=== PATIENT | female | born 1930 | race Caucasian/White ===

== ENCOUNTER 2016-08-30 12:42 | Inpatient (IN) | payer OTHER ==
[2016-08-30] MEDS ORDERED: ASPIRIN PO STA (12:51)
--- NOTE | 2016-08-30 12:53 | PROVIDER DOCUMENTATION ---
HPI-Chest Pain - General Chief Complaint: Chest Pain Stated Complaint: chest pain Time Seen by Provider: 08/30/16 12:45 Allergies/Adverse Reactions: Patient Allergies Allergy/AdvReac Type Severity Reaction Status Date / Time gabapentin [From Neurontin] Allergy NAUSEA Verified 08/30/16 13:55 nitrofurantoin Allergy Unknown Verified 08/30/16 13:55 [From Macrobid] nitrofurantoin Allergy Unknown Verified 08/30/16 13:55 macrocrystalline * [From Macrobid] Penicillins Allergy Unknown Verified 08/30/16 13:55 Home Medications: Home Medication List Medication Instructions Recorded Confirmed Last Taken Type Acetaminophen [Mapap] 325 mg PO PRN PRN 08/30/16 08/30/16 Unknown History Amlodipine [Norvasc] 5 mg PO DAILY 08/30/16 08/30/16 Unknown History Bifidobacterium Infantis [Align] 4 mg PO DAILY 08/30/16 08/30/16 Unknown History Citalopram [Celexa] 20 mg PO DAILY 08/30/16 08/30/16 Unknown History Clobetasol Propionate 15 gm TP DAILY 08/30/16 08/30/16 Unknown History Loperamide [Imodium] 2 mg PO PRN PRN 08/30/16 08/30/16 Unknown History Meclizine HCl [Motion Sickness 25 mg PO DAILY 08/30/16 08/30/16 Unknown History Relief] Promethazine [Phenergan] 12.5 mg MI Q6H PRN PRN 08/30/16 08/30/16 Unknown History Sodium Chloride 1 gm PO DAILY 08/30/16 08/30/16 Unknown History - History of Present Illness-CP Location: reports: substernal, central, epigastric, shoulder Chest Pain Radiation: reports: back Quality of Pain: reports: fullness, pressure Severity in ED: mild Onset/Duration: 1-3 hours ago Timing: improving Context/Activities at Onset: reports: light activity Modifying Factors: improves with: nothing, breathing, rest Associated Symptoms: reports: denies symptoms Nitro Today/Relief: no nitro taken today Aspirin Treatment Today: no aspirin today Similar Symptoms Previously?: Yes Recently Seen Here or By Another Healthcare Provider: No Review of Systems - Adult - REVIEW OF SYSTEMS - ADULT Constitutional: reports: no symptoms reported Eyes: reports: no symptoms reported Ears, Nose, Mouth & Throat: reports: no symptoms reported Cardiovascular: reports: no symptoms reported Respiratory: reports: no symptoms reported Gastrointestinal: reports: no symptoms reported Genitourinary: reports: no symptoms reported Musculoskeletal: reports: no symptoms reported Integumentary: reports: no symptoms reported Neurological: reports: no symptoms reported Psychiatric: reports: no symptoms reported Endocrine: reports: no symptoms reported Hematologic/Lymphatic: reports: no symptoms reported Allergic/Immunologic: reports: no symptoms reported All Other Systems: Reviewed and Negative Past History - Adult - PAST MEDICAL HISTORY-ADULT Review of Records: reports: Old Records Reviewed, Nursing Assessment Review, Medications Reviewed, Social history reviewed & non-contributory. Major Childhood Illnesses: reports: denies history Cardiovascular: reports: HTN, murmur Respiratory: reports: denies history Gastrointestinal: reports: denies history Obstetrical/Gynecological: reports: denies history Genitourinary: reports: denies history Musculoskeletal: reports: denies history Neurological: reports: other (neuropathy) Psychiatric: reports: anxiety Endocrine/Immune: reports: denies history Other Conditions: reports: denies history - PRIOR SURGERIES/PROCEDURES Surgical/Procedure History: reports: appendectomy, cholecystectomy - IMMUNIZATION STATUS Childhood Immunizations: See Nurse Assessment Flu Vaccine: See Nurse Assessment - FAMILY HISTORY Family History: reviewed, not pertinent Physical Exam-General - PHYSICAL EXAM-ADULT Initial Vital Signs Reviewed: Yes - CONSTITUTIONAL General Appearance: appears well, alert, no apparent distress - EYES Eyes: PERRL/EOMI, pink conjunctivae - HEAD, EARS, NOSE, MOUTH & THROAT HENMT: normocephalic/atraumatic, moist mucous membranes - NECK Neck: non-tender, full range of motion - RESPIRATORY Respiratory: chest non-tender, lungs clear, normal breath sounds - CARDIOVASCULAR Cardiovascular: normal peripheral pulses, no edema, no JVD, no murmur, irregularly irregular - GASTROINTESTINAL (ABDOMEN) Abdominal Exam: normal bowel sounds, non tender, soft, no organomegaly - LYMPHATIC Lymphatic: no adenopathy - MUSCULOSKELETAL Back Exam: normal inspection, no CVA tenderness Extremity: normal range of motion, non-tender - SKIN Integumentary: normal color, normal turgor - NEUROLOGIC 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, grossly normal, no motor/sensory deficits - PSYCHIATRIC Psych/Mental Status: normal mood/affect Progress - PLAN OF CARE/RESULTS Progress/Plan/Lab Results: Laboratory Tests 08/30/16 08/30/16 08/30/16 13:01 13:01 13:01 WBC 7.08 RBC 4.68 Hgb 14.1 Hct 40.4 MCV 86.3 MCH 30.1 MCHC 34.9 RDW Std Deviation 13.1 Plt Count 271 MPV 9.0 Immature Gran % (Auto) 0.3 Neut % (Auto) 69.7 Lymph % (Auto) 18.5 L [place] % (Auto) 10.0 H Eos % (Auto) 1.1 Baso % (Auto) 0.4 Immature Gran # (Auto) 0.02 Neut # (Auto) 4.93 Lymph # (Auto) 1.31 [place] # (Auto) 0.71 H Eos # (Auto) 0.08 Baso # (Auto) 0.03 PT INR PTT (Actin FS) D-Dimer 0.45 Sodium 136 Potassium 2.7 L Chloride 94 L Carbon Dioxide 26 Anion Gap 16 BUN 13 Creatinine 0.7 Estimated GFR/1.73 m2 > 60 BUN/Creatinine Ratio 19 Glucose 101 Calculated Osmolality 272 Calcium 9.4 Magnesium 1.9 Total Bilirubin 0.58 AST 17 ALT 9 L Alkaline Phosphatase 84 Creatine Kinase 37 Troponin T Zls-M-Uhdfmhgxchf Pept Total Protein 8.9 H Albumin 4.0 Globulin 4.9 Albumin/Globulin Ratio 0.8 Urine Source Urine Color Urine Clarity Urine Turbidity Urine pH Ur Specific [place] Urine Protein Ur Glucose (Stick) Urine Ketones Ur Ketones (Stick) Urine Blood Urine Nitrite Urine Bilirubin Urine Urobilinogen Urobilinogen Dipstick Urine Leukocytes Urine WBC (Auto) Urine RBC (Auto) U Epithel Cells (Auto) Urine Bacteria (Auto) Urine Microscopic RBC Urine WBC Urine Microscopic WBC Ur Epithelial Cells Urine Crystals Small Round Cells Urine Bacteria Urine Casts Urine Yeast Urine Glucose 08/30/16 08/30/16 08/30/16 13:01 13:01 13:01 WBC RBC Hgb Hct MCV MCH MCHC RDW Std Deviation Plt Count MPV Immature Gran % (Auto) Neut % (Auto) Lymph % (Auto) [place] % (Auto) Eos % (Auto) Baso % (Auto) Immature Gran # (Auto) Neut # (Auto) Lymph # (Auto) [place] # (Auto) Eos # (Auto) Baso # (Auto) PT 10.9 INR 1.03 PTT (Actin FS) 31.3 D-Dimer Sodium Potassium Chloride Carbon Dioxide Anion Gap BUN Creatinine Estimated GFR/1.73 m2 BUN/Creatinine Ratio Glucose Calculated Osmolality Calcium Magnesium Total Bilirubin AST ALT Alkaline Phosphatase Creatine Kinase Troponin T < 0.010 Ogw-D-Stvpoiestkd Pept 152 Total Protein Albumin Globulin Albumin/Globulin Ratio Urine Source Urine Color Urine Clarity Urine Turbidity Urine pH Ur Specific [place] Urine Protein Ur Glucose (Stick) Urine Ketones Ur Ketones (Stick) Urine Blood Urine Nitrite Urine Bilirubin Urine Urobilinogen Urobilinogen Dipstick Urine Leukocytes Urine WBC (Auto) Urine RBC (Auto) U Epithel Cells (Auto) Urine Bacteria (Auto) Urine Microscopic RBC Urine WBC Urine Microscopic WBC Ur Epithelial Cells Urine Crystals Small Round Cells Urine Bacteria Urine Casts Urine Yeast Urine Glucose 08/30/16 14:02 WBC RBC Hgb Hct MCV MCH MCHC RDW Std Deviation Plt Count MPV Immature Gran % (Auto) Neut % (Auto) Lymph % (Auto) [place] % (Auto) Eos % (Auto) Baso % (Auto) Immature Gran # (Auto) Neut # (Auto) Lymph # (Auto) [place] # (Auto) Eos # (Auto) Baso # (Auto) PT INR PTT (Actin FS) D-Dimer Sodium Potassium Chloride Carbon Dioxide Anion Gap BUN Creatinine Estimated GFR/1.73 m2 BUN/Creatinine Ratio Glucose Calculated Osmolality Calcium Magnesium Total Bilirubin AST ALT Alkaline Phosphatase Creatine Kinase Troponin T Pzs-J-Tvtnxcfzhkv Pept Total Protein Albumin Globulin Albumin/Globulin Ratio Urine Source CLEAN CATCH Urine Color YELLOW Urine Clarity Cancelled Urine Turbidity HAZY Urine pH 6.5 Ur Specific [place] 1.015 Urine Protein TRACE A Ur Glucose (Stick) NEGATIVE Urine Ketones Cancelled Ur Ketones (Stick) 10 A Urine Blood NEGATIVE Urine Nitrite POSITIVE A Urine Bilirubin NEGATIVE Urine Urobilinogen Cancelled Urobilinogen Dipstick NORMAL Urine Leukocytes MODERATE A Urine WBC (Auto) 10-20 A Urine RBC (Auto) <10 U Epithel Cells (Auto) <10 Urine Bacteria (Auto) 4+ Urine Microscopic RBC Cancelled Urine WBC Cancelled Urine Microscopic WBC Cancelled Ur Epithelial Cells Cancelled Urine Crystals Cancelled Small Round Cells Cancelled Urine Bacteria Cancelled Urine Casts Cancelled Urine Yeast Cancelled Urine Glucose Cancelled Orders Category Date Time Status Cardiac Monitoring DIRECTED Care 08/30/16 12:51 Active Saline Loc NOW Care 08/30/16 12:51 Active CHEST-PORTABLE [RAD] Stat Exams 08/30/16 12:51 Draft CBC WITH ELECTRONIC DIFF [HEME] Stat Lab 08/30/16 13:01 Completed CK PROFILE [SP CHEM] Stat Lab 08/30/16 13:01 Completed COMPREHENSIVE METABOLIC PANEL [CHEM] Stat Lab 08/30/16 13:01 Completed D-DIMER [CHEM] Stat Lab 08/30/16 13:01 Completed MAGNESIUM [CHEM] Stat Lab 08/30/16 13:01 Completed PRO B-NATRIURETIC PEPTIDE Stat Lab 08/30/16 13:01 Completed PROTIME WITH INR [COAG] Stat Lab 08/30/16 13:01 Completed PTT [COAG] Stat Lab 08/30/16 13:01 Completed TROPONIN T Stat Lab 08/30/16 13:01 Completed URINALYSIS W/POSS RFLX CULT [URINALYSIS] Stat Lab 08/30/16 14:02 Completed URINE CULTURE [RM] Routine Lab 08/30/16 15:00 Received Aspirin Med 08/30/16 12:51 Discontinued 325 mg PO STAT STA Potassium Chloride 20% Liquid Med 08/30/16 15:16 Discontinued 40 meq PO NOW ONE EKG [EKG] Stat Ther 08/30/16 12:51 Ordered Vital Signs Temp Pulse Resp BP Pulse Ox 08/30/16 14:12 90 14 144/81 97 08/30/16 12:42 98.7 F 87 16 140/82 92 L gabapentin [From Neurontin] Allergy (Verified 08/30/16 13:55) NAUSEA nitrofurantoin [From Macrobid] Allergy (Verified 08/30/16 13:55) Unknown nitrofurantoin macrocrystalline * [From Macrobid] Allergy (Verified 08/30/16 13: 55) Unknown Penicillins Allergy (Verified 08/30/16 13:55) Unknown Acetaminophen [Mapap] 325 mg PO PRN PRN 08/30/16 Amlodipine [Norvasc] 5 mg PO DAILY 08/30/16 Bifidobacterium Infantis [Align] 4 mg PO DAILY 08/30/16 Citalopram [Celexa] 20 mg PO DAILY 08/30/16 Clobetasol Propionate 15 gm TP DAILY 08/30/16 Loperamide [Imodium] 2 mg PO PRN PRN 08/30/16 Meclizine HCl [Motion Sickness Relief] 25 mg PO DAILY 08/30/16 Promethazine [Phenergan] 12.5 mg MI Q6H PRN PRN 08/30/16 Sodium Chloride 1 gm PO DAILY 08/30/16 Laboratory 08/30/16 08/30/16 08/30/16 14:02 13:01 13:01 WBC RBC Hgb Hct MCV MCH MCHC RDW Std Deviation Plt Count MPV Immature Gran % (Auto) Neut % (Auto) Lymph % (Auto) [place] % (Auto) Eos % (Auto) Baso % (Auto) Immature Gran # (Auto) Neut # (Auto) Lymph # (Auto) [place] # (Auto) Eos # (Auto) Baso # (Auto) PT 10.9 INR 1.03 PTT (Actin FS) 31.3 D-Dimer Sodium Potassium Chloride Carbon Dioxide Anion Gap BUN Creatinine Estimated GFR/1.73 m2 BUN/Creatinine Ratio Glucose Calculated Osmolality Calcium Magnesium Total Bilirubin AST ALT Alkaline Phosphatase Creatine Kinase Troponin T < 0.010 Ewl-V-Uwfbdsizact Pept Total Protein Albumin Globulin Albumin/Globulin Ratio Urine Source CLEAN CATCH Urine Color YELLOW Urine Clarity Cancelled Urine Turbidity HAZY Urine pH 6.5 Ur Specific [place] 1.015 Urine Protein TRACE A Ur Glucose (Stick) NEGATIVE Urine Ketones Cancelled Ur Ketones (Stick) 10 A Urine Blood NEGATIVE Urine Nitrite POSITIVE A Urine Bilirubin NEGATIVE Urine Urobilinogen Cancelled Urobilinogen Dipstick NORMAL Urine Leukocytes MODERATE A Urine WBC (Auto) 10-20 A Urine RBC (Auto) <10 U Epithel Cells (Auto) <10 Urine Bacteria (Auto) 4+ Urine Microscopic RBC Cancelled Urine WBC Cancelled Urine Microscopic WBC Cancelled Ur Epithelial Cells Cancelled Urine Crystals Cancelled Small Round Cells Cancelled Urine Bacteria Cancelled Urine Casts Cancelled Urine Yeast Cancelled Urine Glucose Cancelled 08/30/16 08/30/16 08/30/16 13:01 13:01 13:01 WBC RBC Hgb Hct MCV MCH MCHC RDW Std Deviation Plt Count MPV Immature Gran % (Auto) Neut % (Auto) Lymph % (Auto) [place] % (Auto) Eos % (Auto) Baso % (Auto) Immature Gran # (Auto) Neut # (Auto) Lymph # (Auto) [place] # (Auto) Eos # (Auto) Baso # (Auto) PT INR PTT (Actin FS) D-Dimer 0.45 Sodium 136 Potassium 2.7 L Chloride 94 L Carbon Dioxide 26 Anion Gap 16 BUN 13 Creatinine 0.7 Estimated GFR/1.73 m2 > 60 BUN/Creatinine Ratio 19 Glucose 101 Calculated Osmolality 272 Calcium 9.4 Magnesium 1.9 Total Bilirubin 0.58 AST 17 ALT 9 L Alkaline Phosphatase 84 Creatine Kinase 37 Troponin T Xie-J-Twerqeirfdo Pept 152 Total Protein 8.9 H Albumin 4.0 Globulin 4.9 Albumin/Globulin Ratio 0.8 Urine Source Urine Color Urine Clarity Urine Turbidity Urine pH Ur Specific [place] Urine Protein Ur Glucose (Stick) Urine Ketones Ur Ketones (Stick) Urine Blood Urine Nitrite Urine Bilirubin Urine Urobilinogen Urobilinogen Dipstick Urine Leukocytes Urine WBC (Auto) Urine RBC (Auto) U Epithel Cells (Auto) Urine Bacteria (Auto) Urine Microscopic RBC Urine WBC Urine Microscopic WBC Ur Epithelial Cells Urine Crystals Small Round Cells Urine Bacteria Urine Casts Urine Yeast Urine Glucose 08/30/16 13:01 WBC 7.08 RBC 4.68 Hgb 14.1 Hct 40.4 MCV 86.3 MCH 30.1 MCHC 34.9 RDW Std Deviation 13.1 Plt Count 271 MPV 9.0 Immature Gran % (Auto) 0.3 Neut % (Auto) 69.7 Lymph % (Auto) 18.5 L [place] % (Auto) 10.0 H Eos % (Auto) 1.1 Baso % (Auto) 0.4 Immature Gran # (Auto) 0.02 Neut # (Auto) 4.93 Lymph # (Auto) 1.31 [place] # (Auto) 0.71 H Eos # (Auto) 0.08 Baso # (Auto) 0.03 PT INR PTT (Actin FS) D-Dimer Sodium Potassium Chloride Carbon Dioxide Anion Gap BUN Creatinine Estimated GFR/1.73 m2 BUN/Creatinine Ratio Glucose Calculated Osmolality Calcium Magnesium Total Bilirubin AST ALT Alkaline Phosphatase Creatine Kinase Troponin T Org-W-Wbbrsyimntg Pept Total Protein Albumin Globulin Albumin/Globulin Ratio Urine Source Urine Color Urine Clarity Urine Turbidity Urine pH Ur Specific [place] Urine Protein Ur Glucose (Stick) Urine Ketones Ur Ketones (Stick) Urine Blood Urine Nitrite Urine Bilirubin Urine Urobilinogen Urobilinogen Dipstick Urine Leukocytes Urine WBC (Auto) Urine RBC (Auto) U Epithel Cells (Auto) Urine Bacteria (Auto) Urine Microscopic RBC Urine WBC Urine Microscopic WBC Ur Epithelial Cells Urine Crystals Small Round Cells Urine Bacteria Urine Casts Urine Yeast Urine Glucose - EKG 1 EKG Interpretation (*Must complete 3 of following elements*): Abnormal Comments: NSR with PVC no STEMI - XRAY 1 XRAY Study: Chest Impression: See EMR Report - CONSULTS/PCP/HOSPITALIST Notification #1 *Consult/PCP/Hospitalist*: Dr Martin Time Discussed: 15:29 Consult Disposition: Admit Departure - Departure Time of Disposition Order: 15:30 DIAGNOSIS: Unstable angina, Hypokalemia UTI (urinary tract infection) Qualifiers: Urinary tract infection type: site unspecified Hematuria presence: without hematuria Qualified Code(s): N39.0 - Urinary tract infection, site not specified Disposition: ADMITTED INPATIENT 09 Certified Medical Emergency: Emergent Condition: Fair - Critical Care Note Comments: pt with moderate heart score presented with CP, kypokalemia replaced K and UTI on UA but no symptoms will hold off on ABX for now
[2016-08-30 13:17] LABS: MANUAL DIFF NEEDED? NO
[2016-08-30 13:23] LABS: BASO% 0.4 % (0.0-0.8); EOS# 0.08 X1000 (0.0-0.7); EOS% 1.1 % (0.0-10.0); HEMATOCRIT 40.4 % (37.0-47.0); HEMOGLOBIN 14.1 g/dL (12.0-16.0); IMM GRAN# 0.02 X1000 (0.0-0.04); IMM GRAN% 0.3 % (0.0-0.5); LYMPH# 1.31 X1000 (1.2-3.4); LYMPH% 18.5 % (20.5-51.1); MCH 30.1 PG (27-31); MCHC 34.9 g/dL (33-37); MCV 86.3 FL (81-99); MONO# 0.71 X1000 (0.11-0.59); NEUT% 69.7 % (42.2-75.2); PLT 271 X1000 (130-400); RBC 4.68 XMIL (4.2-5.4)
[2016-08-30 13:34] LABS: INR 1.03; PROTIME 10.9 Seconds (9.2-11.7); PTT 31.3 Seconds (22.0-36.0)
--- NOTE | 2016-08-30 13:38 | Diag Imaging Result Document ---
PROCEDURE NAME: CHEST-PORTABLE - 08/30/2016 AP PORTABLE CHEST: TIME: 1305 hours FINDINGS: The inspiration is suboptimal. There are scattered granulomata present in the right base and upper lobe. There is atelectasis in the lingula, which was not present on 08/08/2015. IMPRESSION: Worsened lingular atelectasis.
[2016-08-30 13:50] LABS: AGAP 16; ALKALINE PHOSPHATASE 84 U/L (32-104); BUN 13 mg/dL (8-22); CALCIUM 9.4 mg/dL (8.8-10.2); CHLORIDE 94 mmol/L (98-107); CK PROFILE 37 U/L (24-173); COSMO 272; GOT 17 U/L (10-30); GPT 9 U/L (10-36); MAGNESIUM 1.9 mg/dL (1.5-2.7); POTASSIUM 2.7 mmol/L (3.5-5.1); SODIUM 136 mmol/L (136-145); TCO2 26 mmol/L (25-35); TOTAL BILIRUBIN 0.58 mg/dL (0.20-1.00); TOTAL PROTEIN 8.9 g/dL (6.3-8.3)
[2016-08-30 14:39] LABS: URINE MICRO REVIEW NEEDED? NO; URINE SOURCE CLEAN CATCH
[2016-08-30 14:50] LABS: BILIRUBIN URINE NEGATIVE (NEGATIVE); BLOOD URINE NEGATIVE (NEGATIVE); COLOR YELLOW; GLUCOSE URINE NEGATIVE (NEGATIVE); LEUKOCYTES URINE MODERATE (NEGATIVE); NITRITE URINE POSITIVE (NEGATIVE); PH URINE 6.5; PROTEIN URINE TRACE mg/dL (NEGATIVE); SP GRAVITY URINE 1.015; TURBIDITY URINE HAZY (CLEAR); UROBILINOGEN URINE NORMAL (NORMAL)
[2016-08-30 14:52] LABS: UR EPITHELIAL CELLS <10 /HPF (<10); URINE BACTERIA 4+ /HPF; URINE CULTURE NEEDED? YES; URINE RBC <10 /HPF (<10)
[2016-08-30] MEDS ORDERED: POTASSIUM CHLORIDE 20% LIQUID PO ONE (15:16)
[2016-08-30] MEDS ORDERED: SODIUM CHLORIDE 0.9% INJ PRN (16:08)
[2016-08-30] MEDS ORDERED: PHENERGAN IV PRN (16:08)
[2016-08-30] MEDS ORDERED: TYLENOL PO PRN (16:18)
--- NOTE | 2016-08-30 18:36 | HISTORY AND PHYSICAL ---
CHIEF COMPLAINT: Chest pain/tightness and generalized weakness. HISTORY OF PRESENT ILLNESS: This is an 86 years female with a past medical history of hypertension, hyponatremia, hypokalemia who was brought by her son to the emergency department with a chief complaint of chest tightness that started today at 11 a.m. The patient states that was not associated with nausea, vomiting, or diaphoresis, no fever, no chills. She states also that she has been having this kind of problem on and off and also she has been complaining of generalized weakness. This patient was evaluated in the emergency department. She had an EKG that did not show any significant changes and the 1st set of troponin was negative. She also was found to have a urinary tract infection on the initial lab work. This patient will be admitted to get a new echocardiogram, serial troponins, followup EKG, and the possibility of Cardiology evaluation. Also this patient will be admitted to treat her urinary tract infection. PAST MEDICAL HISTORY: Hypertension, hypokalemia and hyponatremia. PAST FAMILY HISTORY: Hypertension. SOCIAL HISTORY: She denies smoking history, alcohol history and drug history. She used to work as a director of the medical records. REVIEW OF SYSTEMS: All 14 points of the review of systems were evaluated, all negative except as per HPI. HOME MEDICATIONS: Phenergan 12.5 mg p.o. q.6 hours p.r.n., acetaminophen 325 mg p.o. p.r.n. fever, loperamide 2 mg p.o. p.r.n., clobetasol propionate 15 g topical daily, meclizine 25 mg p.o. daily, amlodipine 5 mg p.o. daily, sodium chloride 1 g p.o. daily, Align 4 mg p.o. daily, citalopram 20 mg p.o. daily. ALLERGIES: Patient states that she is allergic to penicillins, gabapentin and nitrofurantoin. Vital Signs: Temperature 98.7 degrees, pulse 90, respiratory rate 14, blood pressure 144/81, O2 saturation 97% on room air. HEENT: Normocephalic. No trauma. PERRLA. Neck: Supple. No JVD. No masses. Central trachea. Chest: Clear to auscultation. No wheezing. No rales. Cardiovascular: RRR. No murmurs. No gallops. No rubs. Abdomen: Soft, mild tenderness to palpation in the epigastric area and suprapubic area. Extremities: No edema. No clubbing. No cyanosis. Neurological examination: Patient is alert and oriented x3. No focal neurological deficits just generalized weakness. This patient states that she is basically sitting on a chair the whole day and she walks just a few steps to go to the bathroom but most of the time this patient is either on a wheelchair or bed. LABORATORY: WBC 7, hemoglobin 14.1, hematocrit 40.4, platelets 271,000. Sodium 136, potassium 2.7, chloride 94, bicarbonate 26, BUN 13, creatinine 0.7, calcium 9.4, glucose 101, albumin 4. Urinalysis positive nitrate and leukocyte 10-20, bacteria 4+. ASSESSMENT AND PLAN: 1. Chest pain. I will keep the patient to rule out any acute coronary syndrome. I will repeat the EKG and I will follow up the serial troponins. I will put this patient on telemetry and I will repeat the echocardiogram. Probably I will ask for Cardiology recommendations. At the moment of my evaluation, this patient was not complaining of chest pain or chest tightness. 2. Urinary tract infection. I will ask for blood cultures and urine cultures. Because this patient is allergic to penicillins and nitrofurantoin, I will put this patient on quinolones. She will get levofloxacin IV daily. We will monitor the cultures. 3. Hypertension. This patient is on amlodipine at home. I will continue her medications. Her blood pressure is around 140s. No signs of hypotension or sepsis. 4. Hypokalemia. This was already replaced in the emergency department. I will monitor the potassium daily. 5. Hyponatremia. This patient has a history of hyponatremia. At this moment the blood sodium is normal. Will monitor. This patient will be on IV fluid normal saline as well. 6. DVT prophylaxis. I will go ahead and put this patient on heparin subcutaneously. 7. GI prophylaxis. I will use PPIs for this patient. Probably this patient will be discharged in 1 or 2 days. Depending on the results of the troponins and followup EKG and echocardiogram, I will consult Cardiology. She is going to received levofloxacin for the urinary tract infection and I will monitor the cultures.
[2016-08-30] MEDS: LEVAQUIN 750 MG/D5W 150 ML IV SCH (18:47)
[2016-08-30] MEDS: HEPARIN SUBQ SCH (21:14)
[2016-08-30] MEDS: NS 1,000 ML IV SCH (21:17)
[2016-08-31 06:04] LABS: MANUAL DIFF NEEDED? NO
[2016-08-31 06:11] LABS: BASO% 0.6 % (0.0-0.8); EOS# 0.09 X1000 (0.0-0.7); EOS% 1.7 % (0.0-10.0); HEMATOCRIT 39.7 % (37.0-47.0); HEMOGLOBIN 13.8 g/dL (12.0-16.0); LYMPH# 1.25 X1000 (1.2-3.4); LYMPH% 23.1 % (20.5-51.1); MCH 30.3 PG (27-31); MCHC 34.8 g/dL (33-37); MCV 87.3 FL (81-99); MONO% 11.1 % (1.7-9.3); MPV 9.3 FL (7.4-10.4); NEUT% 63.5 % (42.2-75.2); PLT 240 X1000 (130-400); RBC 4.55 XMIL (4.2-5.4)
[2016-08-31] MEDS: HEPARIN SUBQ SCH ×3 (06:14→20:11)
[2016-08-31] MEDS: PRILOSEC PO SCH (06:14)
[2016-08-31 06:35] LABS: AGAP 12; ALBUMIN 3.7 g/dL (3.5-5.0); ALKALINE PHOSPHATASE 74 U/L (32-104); BUN 9 mg/dL (8-22); CALCIUM 9.2 mg/dL (8.8-10.2); CHLORIDE 99 mmol/L (98-107); COSMO 273; GOT 17 U/L (10-30); GPT 9 U/L (10-36); POTASSIUM 3.1 mmol/L (3.5-5.1); SODIUM 137 mmol/L (136-145); TCO2 26 mmol/L (25-35); TOTAL BILIRUBIN 0.66 mg/dL (0.20-1.00); TOTAL PROTEIN 8.1 g/dL (6.3-8.3)
[2016-08-31] MEDS ORDERED: KLOR-CON PO ONE (08:14)
[2016-08-31] MEDS: ASPIRIN PO SCH (08:39)
[2016-08-31] MEDS: NORVASC PO SCH (08:39)
[2016-08-31] MEDS: CELEXA PO SCH (08:40)
[2016-08-31] MEDS ORDERED: IMODIUM PO PRN (10:14)
[2016-08-31] MEDS ORDERED: IMODIUM PO ONE (10:14)
--- NOTE | 2016-08-31 13:36 | PROGRESS NOTE ---
DATE: 08/31/2016 SUBJECTIVE: This patient states that she is feeling some abdominal discomfort. She started having diarrhea today. This is not the first time she has been having on and off diarrhea at the [facility] and she has been on loperamide for that. I will restart this medication for her. Also I will send some samples to rule out Clostridium difficile colitis. Also WBC in the stools cultured and parasite and ova as well. She denies chest pain, shortness of breath, nausea, or vomiting. OBJECTIVE: Vital Signs: Temperature 98.3 degrees, pulse 84, respiratory rate 16, blood pressure 140/88, O2 saturation 98 on room air. HEENT: Head normocephalic. No trauma. Pupils equal, round, and reactive to light and accommodation. Neck: Supple. No jugular venous distention. No masses. Central trachea. Chest: Clear to auscultation. No wheezing. No rales. Abdomen: Soft. Mild generalized tenderness to palpation, but mostly at the level of the suprapubic area. Extremities: No edema. No clubbing. No cyanosis. Neurological Examination: The patient is alert and oriented x3. No focal neurological deficits, just generalized weakness. LABORATORY: WBC 5.4, hemoglobin 13.8, hematocrit 240. Sodium 137, potassium 3.1, chloride 99, bicarbonate 26. BUN 9, creatinine 0.7, glucose 104, calcium 9.2. TSH 4.2. ASSESSMENT AND PLAN: 1. Chest pain. Troponin's has been negative so far. She is not complaining of chest pain at this moment or shortness of breath. I will continue to monitor the troponin's and electrocardiogram. Echocardiogram was done today, pending results. 2. Urinary tract infection. Cultures have been negative so far. I will continue with the same medications. 3. High TSH. I will ask for T4 to rule out any thyroid problems. 4. Hypertension. I will continue with home medications. The blood pressure is stable. 5. Hypokalemia. I will replace the potassium today. 6. Hyponatremia. This patient has a history of hyponatremia. At this moment the blood sodium is normal. 7. Deep venous thrombosis prophylaxis. Continue with heparin subcutaneously. GI prophylaxis. Continue with PPIs.
--- NOTE | 2016-08-31 14:12 | ECHO REPORT ---
ORDER DATE: 08/31/2016 INDICATION: Chest pain. Generalized weakness. FINDINGS: 1. Right atrium is normal in size. 2. Mild tricuspid regurgitation. RV systolic pressure of 44. 3. Normal RV size and systolic function. 4. Mild pulmonic insufficiency. 5. Mild left atrial enlargement at 4.1 cm. 6. No evidence of mitral prolapse. There is prominent mitral annular calcification most notably in the posterior leaflets. Mild mitral regurgitation. No evidence of significant mitral stenosis. Peak gradient across valve is 17 with a mean of 4. 7. Normal LV size, end-diastolic dimension 3.7. No evidence of left ventricular hypertrophy. Estimated LVEF is greater than 55%. No evidence of significant wall motion abnormalities. 8. Aortic valve is calcified with restriction in motion consistent with mild aortic stenosis. The mean gradient is 13, valve area of 1.8 cm2. Mild aortic insufficiency. 9. Aorta appears normal in visualized segments. 10. No pericardial effusion seen.
[2016-08-31] MEDS: NS 1,000 ML IV SCH (16:09)
[2016-08-31] MEDS: LEVAQUIN 750 MG/D5W 150 ML IV SCH (18:29)
[2016-09-01] MEDS: BLISTEX MEDICATED BERRY LIP BALM TOP PRN ×2 (00:01→09:22)
[2016-09-01] MEDS: HEPARIN SUBQ SCH ×2 (05:35→12:39)
[2016-09-01] MEDS: PRILOSEC PO SCH (05:36)
--- NOTE | 2016-09-01 05:58 | EKG Report ---
Test Performed on : 08/31/2016 05:39:52 AM Test Reason : Chest pain Blood Pressure : / mmHG Vent. Rate : 092 BPM Atrial Rate : 092 BPM P-R Int : 166 ms QRS Dur : 080 ms QT Int : 428 ms P-R-T Axes : 047 -03 053 degrees QTc Int : 529 ms Sinus rhythm. with premature atrial complexes. with aberrant conduction. Possible Left atrial enlargement Septal infarct (cited on or before 11-APR-2015) Prolonged QT Abnormal ECG When compared with ECG of 30-AUG-2016 12:56, (Unconfirmed) premature ventricular complexes. are no longer present aberrant conduction. is now present ST no longer elevated in Inferior leads QT has lengthened Confirmed by Rajiv Lombardo MD ([id number]) on 09/02/2016 9:30:12 PM
[2016-09-01] MEDS: CELEXA PO SCH (09:12)
[2016-09-01] MEDS: NORVASC PO SCH (09:12)
[2016-09-01] MEDS: ASPIRIN PO SCH (09:12)
[2016-09-01 10:12] LABS: MANUAL DIFF NEEDED? NO
[2016-09-01 10:15] LABS: BASO% 0.2 % (0.0-0.8); EOS# 0.02 X1000 (0.0-0.7); EOS% 0.3 % (0.0-10.0); HEMATOCRIT 39.8 % (37.0-47.0); HEMOGLOBIN 13.6 g/dL (12.0-16.0); LYMPH# 0.78 X1000 (1.2-3.4); LYMPH% 12.8 % (20.5-51.1); MCH 29.9 PG (27-31); MCHC 34.2 g/dL (33-37); MCV 87.5 FL (81-99); MONO# 0.33 X1000 (0.11-0.59); MONO% 5.4 % (1.7-9.3); NEUT% 81.3 % (42.2-75.2); PLT 244 X1000 (130-400); RBC 4.55 XMIL (4.2-5.4)
[2016-09-01 10:42] LABS: AGAP 18; BUN 6 mg/dL (8-22); CALCIUM 9.2 mg/dL (8.8-10.2); CHLORIDE 97 mmol/L (98-107); COSMO 275; POTASSIUM 3.3 mmol/L (3.5-5.1); SODIUM 136 mmol/L (136-145); TCO2 21 mmol/L (25-35)
[2016-09-01 11:28] VITALS: BP 126/69
[2016-09-01] MEDS: NS 1,000 ML IV SCH (11:36)
[2016-09-01] MEDS ORDERED: KLOR-CON PO ONE (14:46)
[2016-09-02] MEDS ORDERED: LEVAQUIN PO SCH (09:00)
--- NOTE | 2016-09-02 11:54 | DISCHARGE SUMMARY ---
ADMISSION DATE: 08/30/2016 DISCHARGE DATE: 09/01/2016 CONSULTATIONS: None. PROCEDURES: Echocardiogram showed an EF of 55%. Chest x-ray showed worsening lingular atelectasis. DISCHARGE DIAGNOSES: 1. Chest pain, ruled out with cardiac enzymes. Normal echocardiogram. 2. Urinary tract infection. Continue antibiotics. 3. Elevated thyroid stimulating hormone of 4.27 with a free T4 of 0.99. 4. Hypertension. Continue home medications. 5. Hypokalemia, improved. 6. Hyponatremia, improved. 7. Chronic diarrhea. On Imodium at [facility]. We will continue with that. HOSPITAL COURSE: Briefly, Ms. Scott is an 86-year-old female with a past medical history of hypertension, hyponatremia, and hypokalemia, was brought to the ED by her son with a chief complaint of chest tightness that started around 11 a.m. on the day of admission. It was not associated with any nausea, vomiting, diaphoresis, fever, or chills. She said she had also been having this kind of problem on and off and that she has complaining of generalized weakness. Patient was evaluated in the emergency room. She had an EKG that did not show any significant changes. First set of troponins were negative. She was also found have a urinary tract infection on initial lab work. She was admitted with an echocardiogram as well as treating her cardiac enzymes and a follow up EKG. She was admitted for treatment of her UTI. Started on IV antibiotics. Rechecked an echocardiogram and that was negative. She was resumed on her home amlodipine. For her hypokalemia she was given potassium supplementation and started on IV fluids for her hyponatremia. Patient also complained of some abdominal discomfort with diarrhea. She did state this was chronic and she was on Imodium at the [facility]. This was initiated back. All of the patient's cardiac enzymes were negative. Again, her echocardiogram showed an EF of 55% but no significant wall motion abnormality. Dr. Giron has assessed the patient and he feels that she is appropriate for discharge home today. Her urine culture did grow out Klebsiella pneumonia. VITAL SIGNS: At time of discharge, temperature is 98 degrees, heart rate 94, respirations 18, blood pressure 156/69, O2 is 96% on room air. DISCHARGE DIET: Healthy heart. DISCHARGE MEDICATIONS: 1. Acetaminophen 300 mg p.o. p.r.n. 2. Imodium 2 mg p.o. p.r.n. 3. Phenergan 12.5 mg p.r. q.6 hours p.r.n. 4. Align 4 mg p.o. daily. 5. Celexa 20 mg p.o. daily. 6. Clobetasol propionate 15 g topical daily. 7. Meclizine 25 mg p.o. daily. 8. Norvasc 5 mg p.o. daily. 9. Sodium chloride 1 g p.o. daily. 10. Levaquin 750 mg p.o. daily. 11. Prilosec 40 mg p.o. daily. FOLLOWUP: The patient is being discharged back to her rehab facility. Patient can return to the ED for any worsening of symptoms. The patient will be going back to [facility] [place]. DISCHARGE TIME: Greater than 30 minutes. Dictated by VIGNESH Chen for Josh Giron MD
== END 2016-09-01 15:13 | DRG 690 ==
LOC: EDBD → ED 12:42 → 4N 16:19
PROVIDERS: ATTEND Internal Medicine
DX: N39.0 Urinary tract infection, site not specified (principal); E87.1 Hypo-osmolality and hyponatremia; B96.1 Klebsiella pneumoniae [K. pneumoniae] as the cause of diseases classified elsewhere; R07.89 Other chest pain; K52.9 Noninfective gastroenteritis and colitis, unspecified; E87.6 Hypokalemia; I10 Essential (primary) hypertension; Z79.899 Other long term (current) drug therapy; Z82.49 Family history of ischemic heart disease and other diseases of the circulatory system
CPT/HCPCS: 36415; 71010; 80048; 80053; 81001; 82550; 83735; 83880; 84439; 84443; 84484; 85025; 85379; 85610; 85730; 87040; 87077; 87088; 87186; 93005; 93010; 93306; 99285; J1644; J2550; J7030; 97110-GP; 97116-GP